=== PATIENT | male | born 1935 | race Caucasian/White ===

== ENCOUNTER 2017-09-07 00:28 | Inpatient (IN) | payer MEDICARE, OTHER ==
[~2017-09-07] VITALS: Ht 177.8 cm; Wt 103.4 kg
[2017-09-07] VITALS (7 sets, daily range): BP systolic 97–139; BP diastolic 42–70
--- NOTE | 2017-09-07 00:55 | NUR ---
to bed 11 bib paramedics c/o flu like symptom. pt confused, no acute distress noted, resp even and unlabored. pt hot to touch, rhonchi heard bilaterally on auscultation. place pt on cardiac monitoring, continuous pox, o2@2l/nc. er md at bedside to eval pt with orders received. will carry out orders.
--- NOTE | 2017-09-07 01:00 | NUR ---
started sl 18g to [facility], blood drawn and sent to lab.
[2017-09-07 01:13] LABS: APPEARANCE,URINE SL CLOUDY (CLEAR); BILIRUBIN,URINE NEGATIVE (NEGATIVE); BLOOD, URINE 1+ Ery/uL (NEGATIVE); COLOR,URINE YELLOW (YELLOW); KETONES,URINE NEGATIVE (NEGATIVE); LEUKOCYTE ESTERASE ,URINE 3+ (NEGATIVE); NITRITE, URINE POSITIVE (NEGATIVE); PROTEIN,URINE NEGATIVE (NEGATIVE); UGLUCOSE NEGATIVE (NEGATIVE); UROBILINOGEN,URINE 0.2 EU/dL (0.2)
[2017-09-07] MEDS ORDERED: DILTIAZEM HCL 25 MG IV ONE (01:14)
[2017-09-07] MEDS ORDERED: DILTIAZEM HCL 50 MG IV ONE ×2 (01:14→01:54)
[2017-09-07] MEDS ORDERED: ACETAMINOPHEN 650 MG/SUPP.RECT RC ONE (01:14)
[2017-09-07 01:20] LABS: EOSINOPHILS % (AUTO) 0.2 % (0.0-6.0); HEMATOCRIT 39 % (39-51); HEMOGLOBIN 13.1 g/dL (13.5-17.5); LYMPHOCYTES # (AUTO) 0.4 /CMM (0.8-4.8); LYMPHOCYTES % (AUTO) 1.7 % (20.0-44.0); MEAN CORPUSCULAR HGB CONC 34 g/dl (31.0-36.0); MEAN CORPUSCULAR VOLUME 89 fL (80-96); MONOCYTES % (AUTO) 4.4 % (2.0-12.0); NEUTROPHILS # (AUTO) 21.7 /CMM (1.8-8.9); NEUTROPHILS % (AUTO) 93.7 % (43.0-81.0); PLATELET COUNT (AUTO) 263 /CMM (150-450); RDW COEFFICIENT OF VARIATION 16.1 (11.5-15.0); RED BLOOD CELL COUNT(AUTO) 4.38 MIL/uL (4.5-6.0); WHITE BLOOD COUNT (AUTO) 23.1 K/uL (4.3-11.0)
[2017-09-07 01:22] LABS: BACTERIA,URINE Many /HPF (None Seen); SQUAMOUS EPITHELIAL CELL,UR Few /HPF (None Seen); WBC,URINE 51-80 /HPF (0-3)
[2017-09-07 01:26] LABS: CALCIUM, SERUM 9.2 mg/dL (8.5-10.1); CARBON DIOXIDE 23 mmol/L (21-32); CHLORIDE 109 mmol/L (98-107); CREATININE 1.4 mg/dL (0.6-1.3); GLUCOSE 149 mg/dL (74-106); POTASSIUM 3.8 mmol/L (3.5-5.1); SODIUM SERUM 147 mmol/L (136-145); UREA NITROGEN, BLOOD 20 mg/dL (7-18)
[2017-09-07 01:28] LABS: INR 1.04 (0.87-1.13)
[2017-09-07] MEDS ORDERED: DILTIAZEM HCL 50 MG IV IV ONE (01:30)
[2017-09-07] MEDS ORDERED: DILTIAZEM HCL IV 125 MG in IV NS 0.9% 100 ML IV PRN ×2 (01:30→02:30)
[2017-09-07] MEDS ORDERED: IV NS 0.9% 1,000 ML BAG IV ONE (01:30)
[2017-09-07 01:33] LABS: TROPONIN I < 0.017 ng/mL (0.00-0.056)
[2017-09-07 01:39] LABS: ALANINE AMINOTRANSFERASE 37 U/L (12-78); ALKALINE PHOSPHATASE 93 U/L (46-116); ASPARTATE AMINOTRANSFERASE 27 U/L (15-37); B-TYPE NATRIURETIC PEPTIDE 2370 PG/ML (0-125); BILIRUBIN,DIRECT 0.2 mg/dL (0.0-0.2); BILIRUBIN,TOTAL 0.7 mg/dL (0.2-1.0); TOTAL PROTEIN, SERUM 7.4 g/dL (6.4-8.2)
[2017-09-07] MEDS ORDERED: CEFTRIAXONE 1GM BAG (ER ONLY) 50 ML IV ONE (01:57)
[2017-09-07] MEDS ORDERED: CEFTRIAXONE 1GM BAG (ER ONLY) 1 GM/50 ML PIGGYBACK IV ONE (02:00)
--- NOTE | 2017-09-07 02:16 | NUR ---
pt resting quietly, no acute distress noted, resp even and unlabored. call light within reach. will continue to monitor pt closely.
[2017-09-07] MEDS ORDERED: ACETAMINOPHEN 650 MG/SUPP.RECT RC PRN (02:30)
[2017-09-07] MEDS ORDERED: MORPHINE SULFATE INJ 4 MG/ML DISP.SYRIN IV PRN (02:30)
[2017-09-07] MEDS ORDERED: ONDANSETRON HCL/PF 4 MG/2 ML VIAL IVP PRN (02:30)
[2017-09-07] MEDS ORDERED: LEVALBUTEROL HCL NEB 1.25 MG/0.5 ML VIAL.NEB NEB PRN (02:30)
[2017-09-07] MEDS ORDERED: POLYETHYLENE GLYCOL 3350 17 GM POWD.PACK PO PRN (02:30)
[2017-09-07] MEDS ORDERED: ACETAMINOPHEN 325 MG TABLET PO PRN (02:30)
--- NOTE | 2017-09-07 02:45 | NUR ---
report given to tele 1 baron ac. will transport pt via acls prtocol.
--- NOTE | 2017-09-07 03:00 | NUR ---
ADMITTING NOTES RECEIVED PATIENT FROM ER, IN A GURNEY VIA ACLS PROTOCOL. PATIENT OBSERVED TO BE ALERT AND ORIENTED TO NAME, CONFUSED, ABLE TO FOLLOW COMMANDS. PATIENT DENIES ANY PAIN AND DISCOMFORT. WITH SUPRAPUBIC CATHETER, DRAINING WITH CLOUDY, YELLOW URINE WITH SEDIMENTS. BODY CHECK DONE, PICTURES TAKEN AND FILED IN CHART. NO BELONGINGS. ADMITTED WITH DX OF SEPSIS, AFIB, CHF. PATIENT ADMITTED WITH CARDIZEM DRIP AT 10MG/HR STARTED FROM ED, INFUSING ON PATIENT'S R AC G18. PATIENT IS STILL AFIB UNCONTROLLED WITH HR AT 110-120s. VS STABLE. PLACED ON 2LPM OF O2 VIA NC. MED RECON DONE, AWAITING REVIEW BY DR. MCCARTHY. WILL CONTINUE TO MONITOR.
[2017-09-07] MEDS ORDERED: NA P133E RC (04:03)
[2017-09-07] MEDS ORDERED: METO100T14 PO (04:03)
[2017-09-07] MEDS ORDERED: ASPI-1169 PO (04:03)
[2017-09-07] MEDS ORDERED: CRAN425C6 PO (04:03)
[2017-09-07] MEDS ORDERED: NIFE30TA91 PO (04:03)
[2017-09-07] MEDS ORDERED: DIVA250T PO (04:03)
[2017-09-07] MEDS ORDERED: DIGO250T PO (04:03)
[2017-09-07] MEDS ORDERED: QUET50TA PO (04:03)
[2017-09-07] MEDS ORDERED: ACET325T53 PO (04:03)
[2017-09-07] MEDS ORDERED: FINA5TAB11 PO (04:03)
[2017-09-07] MEDS ORDERED: ACET325C5 PO (04:03)
--- NOTE | 2017-09-07 04:19 | NUR ---
RN NOTES PATIENT'S REPEAT LACTIC IS 4.3, VS: 98.5, 119, 19, 96% ON 2LPM OF O2 VIA NC, 102/55. NNO GIVEN. PATIENT WITH BNP OF 2370 AND WITH RHONCHIAL BREATH SOUNDS THROUGHOUT. ATB INITIATED.
[2017-09-07] MEDS ORDERED: Z GUARD REMEDY 2 OZ OINT TP PRN (04:30)
[2017-09-07] MEDS ORDERED: PIPERACILLIN /TAZOBACTAM 2.25 G VIAL IV ONE (05:15)
[2017-09-07] MEDS: PIPERACILLIN /TAZOBACTAM 2.25 G in IV D5W 50 ML IV SCH ×4 (05:25→23:40)
--- NOTE | 2017-09-07 06:39 | NUR ---
RN NOTES REMAINS AFIB WITH HR AT 78. ON CARDIZEM DRIP ORDERED. ON 2LPM OF O2 VIA NC, NO DISTRESS. PATIENT SLEEPING COMFORTABLY AT THIS TIME. AROUSABLE WITH VERBAL AND TACTILE STIMULI. PATIENT KEPT CLEAN AND DRY. SUPRAPUBIC IN PLACE, DRAINING WELL. SAFETY AND COMFORT ENSURED. CALL LIGHT IN REACH. WILL ENDORSE ACCORDINGLY.
[2017-09-07] MEDS ORDERED: NA PHOS,M-B/NA PHOS,DI-BA 1 EA ENEMA RC PRN (07:00)
--- NOTE | 2017-09-07 07:30 | NUR ---
[facility] RN AM NOTES PT IN BED, ASLEEP, AROUSES TO NAME AND TOUCH, AO CONFUSED, ON 2L O2 NC, NOT IN ANY DISTRESS, SATTING 95%, RESPIRATION UNLABORED, AFIB HR 70 ON MONITOR. ABLE TO FOLLOW COMMANDS. PATIENT DENIES ANY PAIN AND DISCOMFORT. RT AC G18 WITH CARDIZEM DRIP AT 10MG/HR AND NS AT TKO TO RT THUMB G 24, BOTH SITES CLEAR. WITH SUPRAPUBIC CATHETER, DRAINING WITH CLOUDY, YELLOW URINE WITH SEDIMENTS. SEE NURSING FLOWSHEET FOR SKIN ISSUES. ON CARDIAC SOFT DIET, BED REST FOR NOW. CALL LIGHT WITHIN REACH, SAFETY MEASURES IN PLACE. WILL CONT TO MONITOR.
[2017-09-07] MEDS ORDERED: VANCOMYCIN 1.5 GM in IV NS 0.9% 500 ML IV ONE (08:00)
[2017-09-07] MEDS ORDERED: FEE PK DOSING 1 MIN EA MC ONE (08:27)
[2017-09-07] MEDS ORDERED: ALBUTEROL HALF STRENGTH 1.25 MG/3 ML VIAL.NEB NEB PRN (08:30)
[2017-09-07] MEDS ORDERED: FINASTERIDE (5 MG) 5 MG TABLET PO SCH (09:00)
[2017-09-07] MEDS ORDERED: RIVAROXABAN 15 MG TABLET PO SCH (09:00)
[2017-09-07] MEDS: DIVALPROEX SODIUM 250 MG TABLET.DR PO SCH ×2 (09:29→16:48)
[2017-09-07] MEDS: QUETIAPINE FUMARATE 25 MG TABLET PO SCH ×2 (09:30→16:48)
[2017-09-07] MEDS: FAMOTIDINE (20 MG) 20 MG TABLET PO SCH (09:30)
--- NOTE | 2017-09-07 09:30 | NUR ---
RN NOTES DUE MEDS GIVEN.
--- NOTE | 2017-09-07 10:13 | NUR ---
[facility] RN NOTES 2ND CALL TO PHARMACY RE PT'S VANCO IV SCHEDULED FOR 0900 NOT AVAILABLE IN THE FLOOR.
--- NOTE | 2017-09-07 10:48 | NUR ---
[facility] RN NOTES PER DR. VICKI CURTIS.
[2017-09-07] MEDS: VANCOMYCIN 1.25 GM in IV D5W 500 ML IV SCH (11:05)
[2017-09-07] MEDS: IV NS 0.9% 1,000 ML IV PRN ×2 (11:05→20:32)
--- NOTE | 2017-09-07 11:05 | NUR ---
[facility] BUNCH NOTES STARTED ON NS AT 200 ML/HR Addendum: 09/07/17 at 1610 by EDDIE MOREJON RN ADDENDUM PER DR. COHEN TO START NS AT 200 ML/HR. TOTAL OF 2000 ML.
[2017-09-07 13:52] LABS: BASOPHILS % (AUTO) 0.1 % (0.0-2.0); HEMATOCRIT 34 % (39-51); HEMOGLOBIN 11.4 g/dL (13.5-17.5); LYMPHOCYTES # (AUTO) 0.9 /CMM (0.8-4.8); LYMPHOCYTES % (AUTO) 3.3 % (20.0-44.0); MEAN CORPUSCULAR HGB CONC 34 g/dl (31.0-36.0); MEAN CORPUSCULAR VOLUME 88 fL (80-96); MONOCYTES # (AUTO) 1.1 /CMM (0.1-1.30); MONOCYTES % (AUTO) 3.9 % (2.0-12.0); NEUTROPHILS # (AUTO) 26.1 /CMM (1.8-8.9); NEUTROPHILS % (AUTO) 92.7 % (43.0-81.0); PLATELET COUNT (AUTO) 239 /CMM (150-450); RDW COEFFICIENT OF VARIATION 16.1 (11.5-15.0); RED BLOOD CELL COUNT(AUTO) 3.82 MIL/uL (4.5-6.0); WHITE BLOOD COUNT (AUTO) 28.1 K/uL (4.3-11.0)
[2017-09-07 14:01] LABS: CALCIUM, SERUM 8.8 mg/dL (8.5-10.1); CARBON DIOXIDE 26 mmol/L (21-32); CHLORIDE 103 mmol/L (98-107); CREATININE 1.6 mg/dL (0.6-1.3); GLUCOSE 182 mg/dL (74-106); POTASSIUM 4.1 mmol/L (3.5-5.1); SODIUM SERUM 138 mmol/L (136-145); UREA NITROGEN, BLOOD 26 mg/dL (7-18)
[2017-09-07 14:13] LABS: CHOLESTEROL 99 mg/dL (<200); HDL CHOLESTEROL 30 mg/dL (40-60); LDL 61 mg/dL (0-99); THYROID STIMULATING HORMONE 4.195 uIU/mL (0.358-3.74); TRIGLYCERIDES 86 mg/dL (30-150)
[2017-09-07 14:14] LABS: ALANINE AMINOTRANSFERASE 41 U/L (12-78); ALBUMIN 2.5 g/dL (3.4-5.0); ALKALINE PHOSPHATASE 72 U/L (46-116); ASPARTATE AMINOTRANSFERASE 28 U/L (15-37); BILIRUBIN,TOTAL 0.9 mg/dL (0.2-1.0); MAGNESIUM 2.2 mg/dL (1.8-2.4); PHOSPHORUS 3.1 mg/dL (2.5-4.9); TOTAL PROTEIN, SERUM 6.8 g/dL (6.4-8.2)
[2017-09-07 14:17] LABS: TROPONIN I < 0.017 ng/mL (0.00-0.056)
[2017-09-07] MEDS: DIGOXIN 0.25 MG TABLET PO SCH (15:32)
[2017-09-07] MEDS ORDERED: IPRATROPIUM NEB FS 0.5 MG/2.5 ML AMPUL.NEB NEB PRN (16:00)
[2017-09-07] MEDS ORDERED: ALBUTEROL FS 2.5 MG/0.5 ML VIAL.NEB NEB PRN (16:00)
[2017-09-07 16:47] LABS: BAND % (MANUAL) 20 % (0.0-5.0); BASOPHILS % (MANUAL) 0 % (0.0-2.0); EOSINOPHILS % (MANUAL) 0 % (0-4); LYMPHOCYTES % (MANUAL) 8 % (16-48); METAMYELOCYTES % 2 % (0-0); MONOCYTES % (MANUAL) 3 % (0-11.0); NEUTROPHILS % (MANUAL) 67 (42-76)
--- NOTE | 2017-09-07 19:45 | NUR ---
[facility] RN CLSOING NOTES PT IN BED, ASLEEP, RESTING. AROUSES TO NAME AND TOUCH, AO CONFUSED, ON 2L O2 NC, NOT IN ANY DISTRESS, SATTING 95%, RESPIRATION UNLABORED, AFIB HR 70s ON MONITOR. ABLE TO FOLLOW COMMANDS. PATIENT DENIES ANY PAIN AND DISCOMFORT. RT AC G18 NS AT 200ML/HR. INFUSING WELL.SITE CLEAR. ITH SUPRAPUBIC CATHETER, DRAINING WITH CLOUDY, YELLOW URINE WITH SEDIMENTS. 600 ML OUTPUT. ON CARDIAC SOFT DIET, BED REST FOR NOW. CALL LIGHT WITHIN REACH, SAFETY MEASURES IN PLACE. ALL NEEDS MET. PM CARE DONE EARLIER. NO OTHER SIGNIFICANT CHANGE IN CONDITION. WILL ENDORSE TO NEXT SHIFT FOR LEILANI.
--- NOTE | 2017-09-07 20:18 | NUR ---
[facility] RN INITIAL NOTES PT IN BED, ASLEEP, RESTING. AROUSES TO NAME AND TOUCH, AO CONFUSED, ON 2L O2 NC, NOT IN ANY DISTRESS, SATTING 90 TO 94%, RESPIRATION UNLABORED, AFIB HR 120's ON MONITOR. ABLE TO FOLLOW COMMANDS. PATIENT DENIES ANY PAIN AND DISCOMFORT. RT AC G18 NS AT 200ML/HR. INFUSING WELL.SITE CLEAR. ITH SUPRAPUBIC CATHETER, DRAINING WITH CLOUDY, YELLOW URINE WITH SEDIMENTS. CALL LIGHT WITHIN REACH, SAFETY MEASURES IN PLACE. ALL NEEDS MET. PM CARE DONE EARLIER. NO OTHER SIGNIFICANT CHANGE IN CONDITION. WILL ENDORSE TO NEXT SHIFT FOR LEILANI.
[2017-09-08] VITALS (7 sets, daily range): BP systolic 125–146; BP diastolic 50–77
[2017-09-08] MEDS: PIPERACILLIN /TAZOBACTAM 2.25 G in IV D5W 50 ML IV SCH ×2 (05:38→12:13)
--- NOTE | 2017-09-08 06:20 | NUR ---
[facility] RN CLOSING NOTE PT FINISHED WITH IV FLUIDS FOR TOTAL OF 2000 ML, NO SIGN OF FLUID VOL EXCESS NOTED, CONT TO BE ST 11O TO 117 WILL ENDORSE TO AM SHIFT TO F/U WITH , S/P KIRSTEN, PT GETS VERY ANXIOUS WHEN PROVIDING ANY CARE INVOLVING CONTACT, LIKE ADLS. F/U BLOOD CX, URINE CX AND MRSA SCREEN.
--- NOTE | 2017-09-08 07:30 | NUR ---
[facility] RN AM NOTES PT IN BED, ASLEEP, AROUSES TO NAME AND TOUCH, AO CONFUSED, ON 2L O2 NC, NOT IN ANY DISTRESS, SATTING 95%, RESPIRATION UNLABORED, AFIB HR 110 ON MONITOR. ABLE TO FOLLOW COMMANDS. PATIENT DENIES ANY PAIN AND DISCOMFORT. RT AC G18 AND RT THUMB G 24, FLUSHES WELL, BOTH SITES CLEAR. WITH SUPRAPUBIC CATHETER, DRAINING WITH LILIANA COLORED URINE WITH SEDIMENTS. SEE NURSING FLOWSHEET FOR SKIN ISSUES. ON CARDIAC SOFT DIET, BED REST FOR NOW. CALL LIGHT WITHIN REACH, SAFETY MEASURES IN PLACE. WILL CONT TO MONITOR.
[2017-09-08] MEDS: VANCOMYCIN 1.25 GM in IV D5W 500 ML IV SCH (08:43)
[2017-09-08] MEDS: IV NS 0.9% 1,000 ML IV PRN (08:44)
[2017-09-08] MEDS: QUETIAPINE FUMARATE 25 MG TABLET PO SCH ×2 (08:45→16:46)
[2017-09-08] MEDS: DIVALPROEX SODIUM 250 MG TABLET.DR PO SCH ×2 (08:45→16:45)
[2017-09-08] MEDS: FAMOTIDINE (20 MG) 20 MG TABLET PO SCH (08:45)
--- NOTE | 2017-09-08 08:49 | NUR ---
CERAMIC TILE INSTALLATION HELPER NOTES DC [facility] PER VICKI MARKHAM
--- NOTE | 2017-09-08 09:30 | NUR ---
SOLDERER TORCH NOTES DUE MEDS GIVEN
[2017-09-08] MEDS: METOPROLOL TARTRATE 25 MG TABLET PO SCH ×2 (12:10→17:00)
[2017-09-08] MEDS: DIGOXIN 0.25 MG TABLET PO SCH (12:11)
--- NOTE | 2017-09-08 14:00 | NUR ---
MOTOR INSPECTION MECHANIC NOTES SPUTUM EXAM COLLECTED BY CAM PÉREZ AND SENT TO LAB.
[2017-09-08 15:28] LABS: BASOPHILS % (AUTO) 0.2 % (0.0-2.0); EOSINOPHILS % (AUTO) 1.8 % (0.0-6.0); HEMATOCRIT 31 % (39-51); HEMOGLOBIN 10.3 g/dL (13.5-17.5); LYMPHOCYTES # (AUTO) 1.1 /CMM (0.8-4.8); LYMPHOCYTES % (AUTO) 4.7 % (20.0-44.0); MEAN CORPUSCULAR HGB CONC 34 g/dl (31.0-36.0); MEAN CORPUSCULAR VOLUME 89 fL (80-96); MONOCYTES # (AUTO) 1.6 /CMM (0.1-1.30); MONOCYTES % (AUTO) 6.7 % (2.0-12.0); NEUTROPHILS # (AUTO) 20.3 /CMM (1.8-8.9); NEUTROPHILS % (AUTO) 86.6 % (43.0-81.0); PLATELET COUNT (AUTO) 209 /CMM (150-450); RDW COEFFICIENT OF VARIATION 15.8 (11.5-15.0); RED BLOOD CELL COUNT(AUTO) 3.44 MIL/uL (4.5-6.0); WHITE BLOOD COUNT (AUTO) 23.5 K/uL (4.3-11.0)
[2017-09-08 15:50] LABS: TROPONIN I < 0.017 ng/mL (0.00-0.056)
[2017-09-08 15:57] LABS: ALANINE AMINOTRANSFERASE 44 U/L (12-78); ALBUMIN 2.1 g/dL (3.4-5.0); ALKALINE PHOSPHATASE 74 U/L (46-116); ASPARTATE AMINOTRANSFERASE 32 U/L (15-37); BILIRUBIN,TOTAL 0.9 mg/dL (0.2-1.0); CALCIUM, SERUM 8.2 mg/dL (8.5-10.1); CARBON DIOXIDE 24 mmol/L (21-32); CHLORIDE 103 mmol/L (98-107); CREATININE 1.2 mg/dL (0.6-1.3); GLUCOSE 100 mg/dL (74-106); MAGNESIUM 1.6 mg/dL (1.8-2.4); PHOSPHORUS 3.1 mg/dL (2.5-4.9); POTASSIUM 3.7 mmol/L (3.5-5.1); SODIUM SERUM 135 mmol/L (136-145); TOTAL PROTEIN, SERUM 6.4 g/dL (6.4-8.2); UREA NITROGEN, BLOOD 19 mg/dL (7-18)
[2017-09-08 15:57] LABS: APPEARANCE,URINE SL CLOUDY (CLEAR); BILIRUBIN,URINE NEGATIVE (NEGATIVE); BLOOD, URINE 1+ Ery/uL (NEGATIVE); COLOR,URINE YELLOW (YELLOW); KETONES,URINE NEGATIVE (NEGATIVE); LEUKOCYTE ESTERASE ,URINE 2+ (NEGATIVE); NITRITE, URINE POSITIVE (NEGATIVE); PROTEIN,URINE TRACE mg/dl (NEGATIVE); UGLUCOSE NEGATIVE (NEGATIVE); UROBILINOGEN,URINE 0.2 EU/dL (0.2)
[2017-09-08 16:35] LABS: CREATININE, URINE 86.7 MG/DL (30.0-125.0); URINE TOTAL PROTEIN 59.3 mg/dL (0-11.9)
[2017-09-08 16:40] LABS: BACTERIA,URINE 2+ /HPF (None Seen); SQUAMOUS EPITHELIAL CELL,UR 0-2 /HPF (None Seen)
[2017-09-08] MEDS: MEROPENEM 1 G in IV NS 0.9% 100 ML IV SCH (16:40)
[2017-09-08 16:41] LABS: YEAST,URINE Few /HPF (None Seen)
[2017-09-08] MEDS: LACTOBACILLUS RHAMNOSUS GG 1 EACH CAP.SPRINK PO SCH (16:45)
[2017-09-08 18:28] LABS: EOSINOPHIL,URINE None Seen
--- NOTE | 2017-09-08 19:13 | NUR ---
[facility] RN CLOSING NOTES PT IN BED, ASLEEP, RESTING. AROUSES TO NAME AND TOUCH, AO CONFUSED, ON 2L O2 NC, NOT IN ANY DISTRESS, SATTING 95%, RESPIRATION UNLABORED, AFIB HR 98s ON MONITOR. ABLE TO FOLLOW COMMANDS. PATIENT DENIES ANY PAIN AND DISCOMFORT. RT AC G18 NS AT 100ML/HR. INFUSING WELL. LEFT THUMB G24, FLUSHES WELL, SITE CLEAR. WITH SUPRAPUBIC CATHETER, DRAINING YELLOW URINE, 600 ML OUTPUT. ON CARDIAC SOFT DIET, BED REST FOR NOW. CALL LIGHT WITHIN REACH, SAFETY MEASURES IN PLACE. ALL NEEDS MET. TURNED AND REPOSITIONED Q 2HOURS, PM CARE DONE EARLIER. NO OTHER SIGNIFICANT CHANGE IN CONDITION. WILL ENDORSE TO NEXT SHIFT FOR LEILANI.
[2017-09-08] MEDS: Magnesium 1GM/D5W 100ML PREMIX 100 ML IV SCH ×2 (19:19→19:57)
--- NOTE | 2017-09-08 19:30 | NUR ---
STRIPPING SHOVEL OILER NOTES RECEIVED PT ON BED. CONFUSED, REMOCING HIS NASAL CANNULA AT 2LPM. ON TELE MONITOR [id number]. IV ACCESS ON RAC NS @100CC/HR. HEAD OF BED ELEVATED. SIDE RAILS UP. CALL LIGHT WITHIN REACH. WILL CONTINUE TO MONITOR PT CLOSELY.
[2017-09-08 20:30] LABS: BAND % (MANUAL) 9 % (0.0-5.0); EOSINOPHILS % (MANUAL) 2 % (0-4); LYMPHOCYTES % (MANUAL) 3 % (16-48); MONOCYTES % (MANUAL) 9 % (0-11.0); NEUTROPHILS % (MANUAL) 76 (42-76); REACTIVE LYMPHOCYTES 1 % (0-0)
--- NOTE | 2017-09-08 23:29 | NUR ---
FORM CARPENTER NOTES PT AGITATED. REFUSED TO HAVE HIS WOUND PICTURE TAKEN. EXPLAINED THE BENEFITS OF WOUND PICTURE TAKING. VERBALIZED THAT THEY ALREADY TOOK IT YESTERDAY. WILL OFFER AGAIN LATER IN THE SHIFT.
[2017-09-09] VITALS (7 sets, daily range): BP systolic 119–152; BP diastolic 65–91
[2017-09-09] MEDS: METOPROLOL TARTRATE 25 MG TABLET PO SCH ×5 (00:07→23:44)
[2017-09-09] MEDS: IV NS 0.9% 1,000 ML IV PRN (00:08)
[2017-09-09] MEDS: MEROPENEM 1 G in IV NS 0.9% 100 ML IV SCH ×2 (03:01→17:36)
--- NOTE | 2017-09-09 04:44 | NUR ---
DISTRICT FIRE MANAGEMENT OFFICER NOTES PATIENT REFUSED PICTURE TAKEN. EXPLAINED THE BENEFITS OF WOUND PICTURE TAKEN.
--- NOTE | 2017-09-09 07:17 | NUR ---
RADIO REPORTER NOTES NO ACUTE CHANGES NOTED DURING THE SHIFT. DUE MEDS GIVEN. CALL LIGHT IS PLACED WITHIN REACH. PROVIDED COMFORT AND SAFETY. WILL ENDORSE TO THE AM NURSE FOR LEILANI.
--- NOTE | 2017-09-09 07:33 | NUR ---
TRANSMITTER CHIEF INITIAL NOTES RN RECEIVED PT IN BED. RESTING COMFORTABLE RESPIRATIONS EASY AND REGULAR PT ON NASAL CANNULA AT 2LPM. ON TELE MONITOR AFIB. IV RAC NS @100CC/HR. PATIENT SUPINE. SIDE RAILS UP. CALL LIGHT WITHIN REACH. RN WILL CONTINUE TO MONITOR PT THROUGHOUT THE DAY.
[2017-09-09 08:21] LABS: EOSINOPHILS % (AUTO) 2.9 % (0.0-6.0); HEMATOCRIT 31 % (39-51); HEMOGLOBIN 10.6 g/dL (13.5-17.5); LYMPHOCYTES # (AUTO) 0.8 /CMM (0.8-4.8); LYMPHOCYTES % (AUTO) 3.8 % (20.0-44.0); MEAN CORPUSCULAR HGB CONC 34 g/dl (31.0-36.0); MEAN CORPUSCULAR VOLUME 88 fL (80-96); NEUTROPHILS # (AUTO) 18.1 /CMM (1.8-8.9); NEUTROPHILS % (AUTO) 88.3 % (43.0-81.0); PLATELET COUNT (AUTO) 196 /CMM (150-450); RDW COEFFICIENT OF VARIATION 15.7 (11.5-15.0); RED BLOOD CELL COUNT(AUTO) 3.54 MIL/uL (4.5-6.0); WHITE BLOOD COUNT (AUTO) 20.5 K/uL (4.3-11.0)
[2017-09-09 08:37] LABS: ALANINE AMINOTRANSFERASE 42 U/L (12-78); ALKALINE PHOSPHATASE 86 U/L (46-116); ASPARTATE AMINOTRANSFERASE 26 U/L (15-37); BILIRUBIN,TOTAL 0.7 mg/dL (0.2-1.0); CARBON DIOXIDE 23 mmol/L (21-32); CHLORIDE 104 mmol/L (98-107); CREATININE 1.1 mg/dL (0.6-1.3); GLUCOSE 106 mg/dL (74-106); MAGNESIUM 2.8 mg/dL (1.8-2.4); PHOSPHORUS 3.2 mg/dL (2.5-4.9); POTASSIUM 3.7 mmol/L (3.5-5.1); SODIUM SERUM 137 mmol/L (136-145); TOTAL PROTEIN, SERUM 6.2 g/dL (6.4-8.2); UREA NITROGEN, BLOOD 14 mg/dL (7-18)
[2017-09-09] MEDS: VANCOMYCIN 1.25 GM in IV D5W 500 ML IV SCH ×2 (09:00→20:24)
[2017-09-09] MEDS: LACTOBACILLUS RHAMNOSUS GG 1 EACH CAP.SPRINK PO SCH ×2 (09:09→17:31)
[2017-09-09] MEDS: DIVALPROEX SODIUM 250 MG TABLET.DR PO SCH ×2 (09:09→17:31)
[2017-09-09] MEDS: QUETIAPINE FUMARATE 25 MG TABLET PO SCH ×2 (09:09→17:31)
[2017-09-09] MEDS: FAMOTIDINE (20 MG) 20 MG TABLET PO SCH (09:09)
--- NOTE | 2017-09-09 09:12 | NUR ---
WOUND CARE CONSULT: PT PRESENTS WITH INCONTINENCE AND KENDRA SCORE OF 12. HEALED AREA NOTED TO RT ANTERIOR LOWER LEG.PT ON DAYA ISOFLEX LOW AIRLOSS BED. ALL SKIN PROTECTION MEASURES IN PLACE AND DISCUSSED WITH NURSING STAFF. WILL SEE PRN. BARAHONA IN AGREEMENT WITH PLAN OF CARE. Addendum: 09/09/17 at 0914 by CHEL BEAVER WNDNU Amended: Links added.
--- NOTE | 2017-09-09 09:12 | NUR ---
RN NOTE Medication and patient not scanned due to computer issues engineering/IT notified. 5 right of medication administration completed to verify accuracy of Drug Administration.
[2017-09-09] MEDS: DIGOXIN 0.25 MG TABLET PO SCH (14:02)
--- NOTE | 2017-09-09 19:40 | NUR ---
RN CLOSING NOTE PATIENT IN STABLE CONDTION , NEEDS MET CONTINUATION OF CARE GIVEN TO PM RN
--- NOTE | 2017-09-09 19:50 | NUR ---
RN OPENING NOTES: RECEIVED PATIENT ASLEEP BUT AROUSABLE. NOTED WITH DELAYED SLIGHTLY SLURRED SPEECH (BASELINE REPORTED), ALERT TO NAME, WITH CONFUSION. ON O2 VIA NC AT 2LPM, TOLERATED WELL. NOT IN APPARENT DISTRESS. IV ACCESS ON RAC AND LEFT HAND INTACT. SUPRAPUBIC CATH INTACT TO A CLOSED SYSTEM VIA GRAVITY. SAFETY MEASURES ENSURED. CALL LIGHT IN REACH. CONTINUOUSLY MONITORED.
[2017-09-10] VITALS: BP 152/78
[2017-09-10] MEDS ORDERED: MEROPENEM 1 G VIAL IV ONE (03:40)
[2017-09-10 04:00] VITALS: BP 144/87
[2017-09-10] MEDS: MEROPENEM 1 G in IV NS 0.9% 100 ML IV SCH ×2 (04:36→17:29)
[2017-09-10] MEDS: METOPROLOL TARTRATE 25 MG TABLET PO SCH ×3 (05:03→17:29)
--- NOTE | 2017-09-10 06:29 | NUR ---
RN CLOSING NOTES: PATIENT REMAINED NOT IN APPARENT DISTRESS. REMAINED ON O2 THERAPY, TOLERATED WELL. NO ACUTE CHANGES OVERNIGHT. BP CONTROLLED WITH MEDS. REMAINED AFIB CONTROLLED ON MONITOR. IV ACCESS ON RAC LEAKING. PATIENT REFUSING ANOTHER IV INSERTION. REFUSING AM LABS WELL DESPITE ENCOURAGEMENT AND EDUCATION RE RISKS AND BENEFITS. IV ON LEFT THUMB REMAINED INTACT AND FLUSHING WELL AT THIS TIME. CONTINUOUSLY MONITORED. SKIN CARE RENDERED. ASPIRATION PRECAUTIONS ENSURED. TO ENDORSE TO AM SHIFT RN.
[2017-09-10 08:00] VITALS: BP 155/71
[2017-09-10] MEDS: VANCOMYCIN 1.25 GM in IV D5W 500 ML IV SCH (08:41)
[2017-09-10] MEDS: FAMOTIDINE (20 MG) 20 MG TABLET PO SCH (08:41)
[2017-09-10] MEDS: LACTOBACILLUS RHAMNOSUS GG 1 EACH CAP.SPRINK PO SCH ×2 (08:41→17:29)
[2017-09-10] MEDS: DIVALPROEX SODIUM 250 MG TABLET.DR PO SCH ×2 (08:41→17:29)
[2017-09-10] MEDS: QUETIAPINE FUMARATE 25 MG TABLET PO SCH ×2 (08:41→17:29)
[2017-09-10] MEDS: DIGOXIN 0.25 MG TABLET PO SCH (13:13)
[2017-09-10 16:00] VITALS: BP 145/91
--- NOTE | 2017-09-10 19:30 | NUR ---
RN MS NOTES: RECEIVED PT. IN BED W/ HOB ELEVATED. W/ O2 @ 2LPM VIA N/C SAT 94%. NO S/S OF RESPIRATORY DISTRESS OR SOB NOTED. NO FACIAL GRIMACES OR MOANING NOTED. A/O X 1. RAC AND LEFT HAND SL PATENT AND INTACT W/ NO S/S OF INFECTION/INFILTRATION NOTED. SUPRAPUBIC CATH INTACT AND PATENT VIA GRAVITY. BED LOCKED AND IN LOW POSITION. CALL LIGHT W/ REACH. WILL CONTINUE TO MONITOR.
[2017-09-10 20:00] VITALS: BP 147/45
[2017-09-10] MEDS ORDERED: FEE PK DOSING 1 MIN EA MC ONE (20:03)
[2017-09-10] MEDS ORDERED: GENTAMICIN 120 MG in IV D5W 100 ML IV SCH (21:00)
[2017-09-10] MEDS: GENTAMICIN 100 MG in IV D5W 100 ML IV SCH (22:45)
[2017-09-11] VITALS: BP 152/83
[2017-09-11] MEDS: METOPROLOL TARTRATE 25 MG TABLET PO SCH ×4 (00:34→18:26)
--- NOTE | 2017-09-11 07:45 | NUR ---
RN NOTE RECEIVED PATIENT IN BED WITH HOB ELEVATED FOR COMFORT. ALERT AND ORIENTED X1-2. CURRENTLY ON O2 @ 2LPM VIA N/C SATURATION WELL. BREATHING EVEN AND UNLABORED WITH NO DISTRESS NOTED. DENIES ANY PAIN AT THIS TIME. NO FACIAL GRIMACES OR MOANING NOTED. SUPRAPUBIC CATH INTACT AND PATENT VIA GRAVITY. BED LOCKED AND IN LOW POSITION. PLACED CALL LIGHT WITHIN REACH. WILL CONTINUE TO MONITOR.
[2017-09-11 08:00] VITALS: BP 135/76
[2017-09-11] MEDS: QUETIAPINE FUMARATE 25 MG TABLET PO SCH ×2 (08:18→16:31)
[2017-09-11] MEDS: DIVALPROEX SODIUM 250 MG TABLET.DR PO SCH ×2 (08:18→16:31)
[2017-09-11] MEDS: LACTOBACILLUS RHAMNOSUS GG 1 EACH CAP.SPRINK PO SCH ×2 (08:18→16:31)
[2017-09-11] MEDS: FAMOTIDINE (20 MG) 20 MG TABLET PO SCH (08:18)
[2017-09-11] MEDS: GENTAMICIN 100 MG in IV D5W 100 ML IV SCH (08:49)
--- NOTE | 2017-09-11 08:55 | NUR ---
RN NOTE PATIENT REFUSED FOR BLOOD DRAW, EXPLAINED THE RISKS AND BENEFITS, STILL REFUSED. WILL HAVE STORE TEAM MEMBER TRY AGAIN LATER
[2017-09-11] MEDS ORDERED: GENT100P5 IV (10:37)
[2017-09-11] MEDS ORDERED: LACT1CAP72 PO (10:37)
[2017-09-11] MEDS ORDERED: FAMO20TA80 PO (10:37)
[2017-09-11] MEDS ORDERED: METO25TA20 PO (10:37)
[2017-09-11] MEDS: DIGOXIN 0.25 MG TABLET PO SCH (12:18)
[2017-09-11 16:00] VITALS: BP 136/63
[2017-09-11 18:26] VITALS: BP 136/70
[2017-09-11] MEDS ORDERED: LORAZEPAM INJ 2 MG/ML VIAL IV ONE (19:00)
--- NOTE | 2017-09-11 19:00 | NUR ---
RN NOTE 81 YEAR OLD MALE DISCHARGED TO SNF IN STABLE CONDITION. COMPLIANT WITH MEDICATIONS, COOPERATIVE WITH TREATMENT PLANS. MEDICAL TREATMENT PLANS DEFERRED FOR CONTINUAL MONITORING. EDUCATED PATIENT ABOUT AFTER CARE PLAN AND COPIES PROVIDED. RETURNED PERSONAL BELONGINGS TO PATIENT. MEDICATIONS RECONCILED, REPORT GIVEN TO JAVIER AT [facility] FOR CONTINUITY OF CARE. PATIENT UNABLE TO SIGN PAPERWORK BUT SECONDARY RN SIGNED AND COPIES DONE. WOUND PICTURES TAKEN AND DOCUMENTED IN CHART. PATIENT REFUSING TO LEAVE, PATIENT BECOMING AGGRESSIVE. CALLED CHARISSE BRAGA AND RECEIVED ORDER FOR ATIVAN 1MG X1 VIA IV. WILL ENDORSE TO NEXT SHIFT TO FOLLOW UP WITH TRANSPORTATION VIA AMBULANCE.
--- NOTE | 2017-09-11 20:19 | NUR ---
RN NOTE PT REMAINS IN NO ACUTE DISTRESS IN BED. PT DID NOT HAVE ANY SIGNIFICANT CHANGE IN CONDITION DURING SHIFT. EMS AT BEDSIDE. PT TOLERATED TRANSFER TO [facility] AND IS LEAVING HOSPITAL WITH EMS TO [facility] IN STABLE CONDITION.
== END 2017-09-11 20:25 | DRG 871 ==
LOC: ER 00:31 → TELE1 02:08 → TELE-TD 03:14 → TELE1 09-08 08:29 → MEDSG1 09-10 11:13
PROVIDERS: ADMIT Internal Medicine; ATTEND Internal Medicine
DX: A41.9 Sepsis, unspecified organism (principal); J18.9 Pneumonia, unspecified organism; N17.9 Acute kidney failure, unspecified; E44.0 Moderate protein-calorie malnutrition; E87.2 Acidosis; D68.69 Other thrombophilia; R53.2 Functional quadriplegia; E88.09 Other disorders of plasma-protein metabolism, not elsewhere classified; N39.0 Urinary tract infection, site not specified; I48.2 Chronic atrial fibrillation; E86.0 Dehydration; G40.909 Epilepsy, unspecified, not intractable, without status epilepticus; N18.9 Chronic kidney disease, unspecified; F41.9 Anxiety disorder, unspecified; R65.20 Severe sepsis without septic shock; I12.9 Hypertensive chronic kidney disease with stage 1 through stage 4 chronic kidney disease, or unspecified chronic kidney disease; K76.0 Fatty (change of) liver, not elsewhere classified; R73.9 Hyperglycemia, unspecified; N40.1 Benign prostatic hyperplasia with lower urinary tract symptoms; G80.8 Other cerebral palsy; F29 Unspecified psychosis not due to a substance or known physiological condition; Z68.32 Body mass index [BMI] 32.0-32.9, adult; B96.20 Unspecified Escherichia coli [E. coli] as the cause of diseases classified elsewhere; B96.5 Pseudomonas (aeruginosa) (mallei) (pseudomallei) as the cause of diseases classified elsewhere; Z16.12 Extended spectrum beta lactamase (ESBL) resistance; L98.8 Other specified disorders of the skin and subcutaneous tissue; F20.9 Schizophrenia, unspecified
CPT/HCPCS: 36415; 71045-TC; 71250-TC; 80048-TC; 80053-TC; 80061-TC; 80076-TC; 80162-TC; 80164-TC; 80202-TC; 81000-TC; 82570-TC; 83605-TC; 83735-TC; 83880; 84100-TC; 84155-TC; 84300-TC; 84439-TC; 84443-TC; 84484-TC; 85025-TC; 85730-TC; 87040-TC; 87070-TC; 87081-TC; 87086-TC; 87186-TC; 93307-TC; A4606; J0696; J1580; J2060; J2185; J2270; J2543; J3370; J3475; J3490; J7030; J7040; J7050; J7060; Z7610